=== PATIENT | male | born 1980 | race Caucasian/White ===

== ENCOUNTER 2022-01-30 14:00 | Emergency (ER) | payer OTHER, SELFPAY ==
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
[2022-01-30 14:49] VITALS: BP 129/81; PULSE 93; RESP 20; TEMP 36.7; O2SAT 97; BMI 24.2
[2022-01-30] MEDS: Acetaminophen 325 MG TABLET 975 MG PO (17:54)
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
[2022-01-30 19:21] VITALS: BP 146/85; PULSE 65; RESP 14; TEMP 36.9; O2SAT 97
[2022-01-30] MEDS: Ibuprofen 800 MG TABLET PO (19:33)
== END 2022-01-30 19:39 | disposition home or self-care (01) ==
PROVIDERS: Emergency Provider Internal Medicine
DX: S13.4XXA Sprain of ligaments of cervical spine, initial encounter (principal); M25.512 Pain in left shoulder; V49.9XXA Car occupant (driver) (passenger) injured in unspecified traffic accident, initial encounter; Y93.9 Activity, unspecified; Y92.410 Unspecified street and highway as the place of occurrence of the external cause; Y99.9 Unspecified external cause status
CPT/HCPCS: 70450; 72125; 73030; 99284